=== PATIENT | male | born 1970 | race Caucasian/White ===

== ENCOUNTER → 2023-06-26 | Day surgery (SDC) | payer OTHER ==
[2023-06-26 09:07] LABS: INR 1.2 (0.80-1.20); PROTHROMBIN TIME 12.2 SECS (9.5-12.5)
[2023-06-26 09:45] VITALS: BP_SYST 159; PULSE 82; RESP 15; TEMP 98
== END | disposition home or self-care (01) ==
LOC: SDS 07:40
PROVIDERS: ATTEND Radiology Diagnostic Radiology
DX: J90 Pleural effusion, not elsewhere classified (principal); N18.6 End stage renal disease; Z79.01 Long term (current) use of anticoagulants
CPT/HCPCS: 32555; 36415; 71046-TC; 85610-TC; 85730-TC